=== PATIENT | male | born 1970 ===

== ENCOUNTER 2017-03-22 08:52 | Emergency (ER) | payer OTHER ==
[2017-03-22 09:02] VITALS: TEMP 98.3
[2017-03-22] MEDS ORDERED: Sodium Chloride 0.9% 1,000 ML IV STA (09:28)
--- NOTE | 2017-03-22 09:33 | C.PDOC ---
History Of Present Illness 46 y/o male presents to emergency department with complaint of feeling shaky, weak legs, and feeling short of breath while at work this morning. Denies history of similar episode in the past. Patient notes that he has no regular doctor and has not had any recent evaluation. Denies any significant past medical history. Otherwise, denies fever, chills, chest pain, vomiting, diarrhea , or other associated symptoms. Time Seen by Provider: 03/22/17 09:13 Chief Complaint (Nursing): Anxiety History Per: Patient History/Exam Limitations: no limitations Onset/Duration Of Symptoms: Hrs Current Symptoms Are (Timing): Still Present Modifying Factor(s): None Recent travel outside of the [place]: No Past Medical History Reviewed: Historical Data, Nursing Documentation, Vital Signs Vital Signs: Last Vital Signs Temp 98.3 F 03/22/17 12:54 Pulse 76 03/22/17 12:54 Resp 16 03/22/17 12:54 BP 126/81 03/22/17 12:54 Pulse Ox 100 03/22/17 13:20 - Medical History PMH: No Chronic Diseases Family History: States: Unknown Family Hx - Social History Hx Alcohol Use: No Hx Substance Use: No - Immunization History Hx Tetanus Toxoid Vaccination: No Hx Influenza Vaccination: No Hx Pneumococcal Vaccination: No Review Of Systems Except As Marked, All Systems Reviewed And Found Negative. Constitutional: Positive for: Weakness. Negative for: Fever, Chills Cardiovascular: Negative for: Chest Pain, Palpitations Respiratory: Negative for: Cough, Shortness of Breath Gastrointestinal: Negative for: Nausea, Vomiting, Abdominal Pain Skin: Negative for: Rash Neurological: Negative for: Weakness, Numbness, Headache, Dizziness Psych: Positive for: Anxiety Physical Exam - Physical Exam Appears: Non-toxic, No Acute Distress Skin: Normal Color, Warm, Dry Head: Atraumatic, Normacephalic Eye(s): bilateral: Normal Inspection, PERRL, EOMI Nose: Normal Oral Mucosa: Moist Neck: Normal ROM, Supple Chest: Symmetrical Cardiovascular: Rhythm Regular Respiratory: Normal Breath Sounds, No Rales, No Rhonchi, No Wheezing Gastrointestinal/Abdominal: Soft, No Tenderness, No Guarding, No Rebound Back: Normal Inspection Extremity: Normal ROM, Capillary Refill (< 2 sec.) Neurological/Psych: Oriented x3, Normal Speech, Normal Cognition ED Course And Treatment - Laboratory Results Result Diagrams: 03/22/17 09:37 03/22/17 09:37 O2 Sat by Pulse Oximetry: 100 (RA) Pulse Ox Interpretation: Normal - Radiology CXR: Viewed By Me, Read By Radiologist CXR Interpretation: Yes: No Acute Disease (No focal consolidation, significant pleural effusion, or definite pneumothorax identified.) Progress Note: EKG, CxR, labs ordered and reviewed. IVFs given. On reassessment , patient is resting comfortably, asymptomatic (all symptoms completely resolved ) and is in no acute distress. Patient instructed to follow up with PMD within 1 -2 days. Copies of all reports were given to the patient. Disposition - Disposition Referrals: Olivia Sotomayor MD [Staff Provider] - Clarence Herrera Jr., MD [Medical Doctor] - Disposition: HOME/ ROUTINE Disposition Time: 12:54 Condition: STABLE Additional Instructions: FOLLOW UP WITH PMD WITHIN 1-2 DAYS. RETURN TO ED IF FEEL WORSE. Prescriptions: ALPRAZolam [Xanax] 0.25 mg PO TID #15 tab Instructions: Anxiety (ED) Forms: [employer] (Taiwanese) - Clinical Impression Clinical Impression: Anxiety - PA / DIGITAL TECHNICIAN / Resident Statement MD/DO has reviewed & agrees with the documentation as recorded. - Scribe Statement The provider has reviewed the documentation as recorded by the Scribkateryna Pichardo All medical record entries made by the Jonoibe were at my direction and personally dictated by me. I have reviewed the chart and agree that the record accurately reflects my personal performance of the history, physical exam, medical decision making, and the department course for this patient. I have also personally directed, reviewed, and agree with the discharge instructions and disposition.
[2017-03-22] MEDS ORDERED: Sodium Chloride 0.9% 1,000 ML ONE (09:37)
[2017-03-22 09:40] LABS: BASO % 0.4 % (0.0-2.0); EOS % 0.2 % (0.0-4.0); HEMATOCRIT 45.3 % (35.0-51.0); LYMPH # 1.4 K/uL (1.0-4.3); LYMPH % 13.4 % (20.0-40.0); MEAN CELL VOLUME 84.2 fL (80.0-94.0); MEAN CORPUSCULAR HEMOGLOBIN 28.6 pg (27.0-31.0); MONO # 0.7 K/uL (0.0-0.8); MONO % 6.6 % (0.0-10.0); RED CELL DISTRIBUTION WIDTH 13.6 % (11.5-14.5); WHITE BLOOD COUNT 10.7 K/uL (4.8-10.8)
[2017-03-22 09:50] LABS: CHLORIDE 100 mmol/L (98-107)
[2017-03-22 09:51] LABS: POTASSIUM 3.5 mmol/L (3.6-5.2); SODIUM 136 mmol/L (132-148)
[2017-03-22 09:53] LABS: ALKALINE PHOSPHATASE 86 U/L (38-126); ALT/SGPT 33 U/L (21-72); AST/SGOT 23 U/L (17-59); BILIRUBIN,TOTAL 0.4 mg/dL (0.2-1.3); BLOOD UREA NITROGEN 12 mg/dL (9-20); CARBON DIOXIDE 23 mmol/L (22-30); GFR AFRICAN-AMERICAN > 60; TOTAL PROTEIN 8.7 g/dL (6.3-8.3)
[2017-03-22 09:54] LABS: GLUCOSE,RANDOM 102 mg/dL (75-110)
--- NOTE | 2017-03-22 10:14 | RAD ---
HISTORY: SOB, ? anxiety COMPARISON: None available. TECHNIQUE: Chest, one view. FINDINGS: LUNGS: No focal consolidation. Please note that chest x-ray has limited sensitivity for the detection of pulmonary masses. PLEURA: No significant pleural effusion identified. No definite pneumothorax . CARDIOVASCULAR: Heart size appears within normal limits. OSSEOUS STRUCTURES: No acute osseous abnormality identified. VISUALIZED UPPER ABDOMEN: Unremarkable. OTHER FINDINGS: None. IMPRESSION: No focal consolidation, significant pleural effusion, or definite pneumothorax identified.
[2017-03-22 12:55] VITALS: BP 126/81; PULSE 76; RESP 16
[2017-03-22 12:57] VITALS: O2SAT 100
--- NOTE | 2017-03-24 22:55 | CARD ---
APPROVED REPORT EKG Measurement Heart [id number] <Conclusion> Normal sinus rhythm Normal ECG
== END 2017-03-22 13:18 | disposition home or self-care (01) ==
LOC: C.ER 08:52
DX: F41.9 Anxiety disorder, unspecified (principal)
CPT/HCPCS: 71010; 80053; 82550; 82553; 84484; 85025; 85610; 85730; 99285; J7040